=== PATIENT | male | born 1980 ===

== ENCOUNTER 2025-05-10 14:39 | Outpatient (AMB) | payer BC, SELFPAY ==
--- NOTE | 2025-05-10 14:46 | A.OFFVIS_ITS ---
Vital Signs 05/10/25 14:48 Height 6 ft 1.5 in Weight 257 lb 0.944 oz BMI 33.5 BP 151/92 H Blood Pressure Location Lt brachial Position Sitting Pulse 79 Intake Visit Reasons: Colonoscopy screening Intake Note: New patient in office today for colonoscopy screening. CC: Patient denies having any GI symptoms concerns. De Icer Element Winder Required: No Accompanied by: Self / Same As Patient Allergies No Known Drug Allergies Allergy (Unknown, Verified 05/10/25 14:50) none HPI HPI Colonoscopy screening: Details: 44-year-old male here for preprocedural meeting to discuss a screening colonoscopy. He is referred by [facility] in [facility] 0. PMX Obesity-BMI 33 Hypertension History of epidural abscess Lumbar degenerative disc disease * SURGICAL HISTORY Lumbar laminectomy L1-L4 Rt rotator cuff repair * ALLERGIES: NKDA * Cherrish LABS: none TODAY'S VISIT This is his 1st colonoscopy. Bowel or upper GI problems: No Cardiac or respiratory problems: No Anesthesia or sedation problems: No Infectious disease problems: No Family history: His [facility] Medical History (Updated 05/10/25 @ 15:39 by ABDIRASHID Joseph) Epidural abscess Surgical History (Updated 05/10/25 @ 14:51 by BELL Hollins) H/O rotator cuff surgery History of lumbar laminectomy Social History (Updated 05/10/25 @ 14:52 by BELL Hollins) Alcohol intake: current Alcohol intake frequency: holidays/special occasions only Patient Tobacco Use Status: Never used Tobacco Review of Systems Const Denies fatigue, Denies fever(s), Denies night sweats, Denies poor appetite and Denies weight loss ENT Reports Normal hearing present, Denies dental pain, Denies dysphagia, Denies he aring loss, Denies mouth pain, Denies odynophagia, Denies throat swelling, Denies tongue swelling and Reports other (Dentition adequate) Card Reports no additional complaints Resp Reports no additional complaints GI Details: Denies abdominal pain, Denies melena, Denies bloating, Denies hematochezia, Denies constipation, Denies GI cramping, Denies dysphagia, Denies excessive flatus, Denies early satiety, Denies heartburn, Denies diarrhea, Denies nausea, Denies odynophagia, Denies vomiting and Denies hematemesis Skin/Breast Denies pruritus, Denies lesions, Denies rash and Denies jaundice Neuro Reports Normal hearing present and Denies Abnormal speech present Endo Denies fatigue Aller/Immun Denies throat swelling and Denies tongue swelling Physical Exam Vital Signs: Last Vital Signs Pulse 79 05/10/25 14:48 BP 151/92 H 05/10/25 14:48 BMI result Body Mass Index 33.5 Const General: cooperative, no acute distress, well developed and well groomed Nutritional Appearance: well nourished and obese Orientation/consciousness: oriented to person, oriented to place and oriented to time Limitations: No language barrier HEENT Head: Yes normocephalic and Yes atraumatic Eyes General: appearance normal, both eyes and all related structures Pupils: Equal, round and reactive pupils present Neck Neck: Yes normal visual inspection and Yes no lymphadenopathy Thyroid: Thyroid normal Resp Effort & Inspection: normal respiratory effort and able to speak in complete sentences Auscultation: clear to auscultation bilaterally Cardio Rate: regular rate Rhythm: regular rhythm Heart sounds: Normal, physiologic split S2 sound present Peripheral pulses: radial pulses present and posterior tibial pulses present GI Inspection: No distended, No Abdominal panniculus present and Yes obesity Palpation (GI): Soft to palpation, nontender, no guarding, not rigid and No hepatosplenomegaly present Percussion: Yes normal to percussion Auscultation: normal bowel sounds Rectal Exam - Male: Yes deferred Skin General skin exam: no rashes or lesions noted, turgor normal, skin not dry, no jaundice, No spider nevi and no striae Rashes: no rashes Nails: normal Neuro General: oriented to person, oriented to place and oriented to time Cranial nerves: Yes Equal, round and reactive pupils present and Yes Normal hearing present Speech: No Abnormal speech present Extrem General: Yes normal to inspection, No clubbing, No cyanosis and No edema Psych Appearance: grossly normal and well kempt Mental Status: mental status grossly normal Speech and movement: Normal speech and movement present Affect: normal affect Attitude: cooperative Thought process: Normal thought process present and not confabulating Thought content: Normal thought content present Insight: Good insight present (Psych) Judgement: Good judgement present (Psych) Assessment & Plan Assessment & Plan (1) Pre-op examination: Code(s): Z01.818 - Encounter for other preprocedural examination Category: Medical (2) Obesity (BMI 30.0-34.9): Code(s): E66.811 - Obesity, class 1 Category: Medical (3) Family history of polyps in the colon: Comment: father Code(s): Z83.719 - Family history of colon polyps, unspecified Category: Medical Plan This is his 1st colonoscopy. Bowel or upper GI problems: No Cardiac or respiratory problems: No Anesthesia or sedation problems: No Infectious disease problems: No Family history: His father had colon polyps Orders: Orders Comprehensive Met. Panel Today Z01.818 - Encounter for other preprocedural examination Complete Blood Count Auto Diff Today Z01.818 - Encounter for other preprocedural examination Referrals 2 GI Procedure Notification Z01.818 - Encounter for other preprocedural examination Medications: New peg 3350-electrolytes 236-22.74-6.74 -5.86 gram (Golytely) until fecal effluent is clear; do not exceed a total volume of 2,000 mL 240 mL PO Q10M 4,000 mL 0RF 1 day Z12.11 - Encounter for screening for malignant neoplasm of colon bisacodyl (Dulcolax (bisacodyl)) 10 mg (2 x 5 mg) PO BEDTIME 4 tabs 0RF 2 days Coding Level of Care Code New Pt Level 3 (51507) Diagnoses Pre-op examination Z01.818 Obesity (BMI 30.0-34.9) E66.811 Family history of polyps in the colon Z83.719
[2025-05-10 14:48] VITALS: BP 151/92; PULSE 79; BMI 33.5
== END 2025-05-10 15:38 | disposition home or self-care (01) ==
LOC: HO.HGI 14:39
PROVIDERS: PCP Internal Medicine; Visit Provider Nurse Practitioner
DX: Z01.818 Encounter for other preprocedural examination (principal); Z12.11 Encounter for screening for malignant neoplasm of colon; Z83.719 Family history of colon polyps, unspecified; E66.811 Obesity, class 1; Z68.33 Body mass index [BMI] 33.0-33.9, adult
CPT/HCPCS: S0285

== ENCOUNTER 2025-08-02 07:47 | Day surgery (SDC) | payer BC, SELFPAY ==
--- OUTSIDE RECORDS SUMMARY | 2024-03-17 09:30 | XMS_ITS ---
Author Organization [facility] Address [address] [facility] [address] [place] [address] Care Team Providers Care Copper Plate Printer Name Role Phone SUSY LYNN Primary Care Provider Ino Garcia Unavailable [phone] REASON FOR VISIT f/u Encounters Encounter Location Date Provider Diagnosis [facility] [address] [facility] [address] [place] [address] 03/17/2024 Ino Garcia Plan Of Treatment Next Appt Details Provider Name:SUSY LYNN , 10/03/2025 01:00:00 PM, [address] [facility] [address], [place], [address], Progress Notes * Elia MC RDOB:1980 (45 yo M)Acc No.[id number]:03/17/2024 Progress Notes Patient: Murali DL Elia David Appointment Provider: Lee Garcia :1980 A ge:43 Y S ex:Male Date:03/17/2024 Phone: Address:[address] [place] [phone] Pcp:SUSY LYNN Subjective: * Chief Complaints: * 1 . F/u. * Medical History: Objective: * Vitals: Assessment: Plan: * Treatment: * Procedure Codes: N OSHO NO SHOW FEE * Images: * Electronic signature of Pedrito Garcia PA-C on 07/26/2025 at 03:58 PM EST Sign off status: Pending * Appointment Provider: Lee Garcia Date: 0 03/17/2024 Generated for Kat chen/Jose/Bunny on: 1 09/26/2024 03:58 PM EST
--- OUTSIDE RECORDS SUMMARY | 2025-03-21 06:15 | XMS_ITS ---
Author Organization [facility] Address [address] [place] [phone] Care Team Providers Care Time Recorder Name Role Phone SUSY LYNN Primary Care Provider REASON FOR VISIT 4 month f/u-BP Encounters Encounter Location Date Provider Diagnosis [facility] [address] [address] 03/21/2025 SUSY LYNN Plan Of Treatment Next Appt Details Provider Name:SUSY LYNN , 10/03/2025 01:00:00 PM, [address] [place] [address], [place], [address], Progress Notes * Elia MC RDOB:1980 (45 yo M)Acc No.[id number]:03/21/2025 Progress Notes Patient: Murali Eila LIZAMA Provider: Lisa LYNN MD :1980 A ge:44 Y S ex:Male Date:03/21/2025 Phone: Address:[address] [place] [phone] Subjective: * Chief Complaints: * 1 . 4 month f/u-BP. * Medical History: Objective: * Vitals: Assessment: Plan: * Treatment: * Procedure Codes: N OSHO NO SHOW FEE * Images: * Electronic signature of JOHN LYNN MD on 07/26/2025 at 03:57 PM EST Sign off status: Pending * Provider: Lisa LYNN MD Date: 0 03/21/2025 Generated for Kat chen/Jose/Bunny on: 1 09/26/2024 03:57 PM EST
--- OUTSIDE RECORDS SUMMARY | 2025-07-26 15:58 | XMS_ITS | Clinical Summary ---
Author Organization [facility] Address [address] [place] [address] Care Team Providers Care Safety Equipment Testing Specialist Name Role Phone Unavailable Primary Care Provider Unavailabl e Allergies No known active allergies Medications * This document contains information received from the source organization and may not represent a complete record from that organization. No known medications Active Problems No known active problems Social History Tobacco Use Types Packs/Day Years Used Date Smoking Tobacco: Former Cigarettes Comments:quit in 2007 Alcohol Use Standard Drinks/Week Comments Not Asked 0 (1 standard drink = 0.6 oz pur e alcohol) Sex and Gender Information Value Date Recorded Sex Assigned at Not on file Legal Sex Male 1:59 AM EDT Gender Identity Not on file Sexual Orientation Not on file Last Filed Vital Signs Vital Sign Reading Time Taken Comments Blood Pressure 130/70 07/22/2012 12:58 PM EST Pulse 84 07/22/2012 12:58 PM EST Temperature - - Respiratory Rate - - Oxygen Saturation 98% 07/22/2012 12:58 PM EST Inhaled Oxygen Concentration - - Weight 122 kg (270 lb) 07/22/2012 12:58 PM EST Height 184.4 cm (6' 0.6 ) 07/22/2012 12:58 PM ES T Body Mass Index 36.02 07/22/2012 12:58 PM EST Plan of Treatment Health Maintenance Due Date Last Done Comments Hepatitis C Screening 1980 DTaP/Tdap/Td (1 - Tdap) 1997 Hep B (1 of 3 - 19+ 3-dose series) 1998 COVID-19 Vaccine ( - 2024-2 6 season) 2025 Influenza (#1) 2025 Zoster (Shingrix) (1 of 2) 2029 HPV Vaccine (No Doses Required) Completed Hep A Aged Out No longer eligi ble based on patient's age to complete this topic Hib Aged Out No longer eligi ble based on patient's age to complete this topic Meningococcal ACWY Aged Out No longer eligible based on patient's age to complete this topic Pneumococcal Aged Out No longer eligi ble based on patient's age to complete this topic
--- NOTE | 2025-07-30 14:57 | P.CONAN_ITS ---
Documented by User: Bella Harris NP 07/30/25 14:58 HPI - Anesthesia Eval Consult details Narrative: 45yo M for Colonoscopy [facility] Active Problems Active Problems: All Active Problems Family history of polyps in the colon (Acute) Pre-op examination (Acute) Lumbar degenerative disc disease (Acute) Hypertension (Acute) Obesity (BMI 30.0-34.9) (Acute) Past Medical History Medical History HTN (hypertension) Epidural abscess Surgical History Surgical History H/O rotator cuff surgery History of lumbar laminectomy Social History Social History Alcohol intake: current Alcohol intake frequency: holidays/special occasions only Patient Tobacco Use Status: Former Tobacco user Have you been hit, kicked, punched, or otherwise hurt by someone within the past year? If so, by whom?: No Are you DNR?: No Advance Directives: No Advance Directives Information Provided: Yes Meds Allergies Allergy/AdvReac Type Severity Reaction Status Date / Time No Known Drug Allergies Allergy Unknown none Verified 05/10/25 14:50 Assessment and Plan Assessment Anesthesia Assessment: Chart Reviewed Documented by User: Stephie Ponce MD 08/02/25 09:08 [facility] Past Medical History Medical History HTN (hypertension) Epidural abscess Family History Family history of problems with anesthesia: No Surgical History Surgical History H/O rotator cuff surgery History of lumbar laminectomy History of Problems with Anesthesia: No Social History Social History Alcohol intake: current Alcohol intake frequency: holidays/special occasions only Patient Tobacco Use Status: Former Tobacco user Have you been hit, kicked, punched, or otherwise hurt by someone within the past year? If so, by whom?: No Are you DNR?: No Advance Directives: No Advance Directives Information Provided: Yes Meds Allergies Allergy/AdvReac Type Severity Reaction Status Date / Time No Known Drug Allergies Allergy Unknown none Verified 05/10/25 14:50 Exam Airway Mallampati Class: II TM Dist: >3cm Neck ROM: Full Heart: rrr Lungs: cta Assessment and Plan Assessment Anesthesia Assessment: Anesthesia Plan Discussed Final Anesthetic Review Family History of Problems with Anesthesia: No History of Problems with Anesthesia: No NPO: Yes ASA Class: II Final Preanesthetic Review: No Changes in Pt Med Stat, Meds/Allgs Chart Reviewed, Consent Obtained/Reviewed and Anes Risks/Benef Reviewed Patient Risk: Low Procedure Risk: Low Anesthetic Plan Anesthetic Plan: MAC: and Agree w/ Assess. and Plan Disposition: Standard PACU
[2025-07-31 11:01] VITALS: BMI 33.4
[2025-08-02 08:05] VITALS: BP 150/103; PULSE 66; RESP 18; TEMP 36.9; O2SAT 98; BMI 31.9
[2025-08-02 08:18] VITALS: BP 151/90
[2025-08-02] MEDS: Lactated Ringers 1,000 ML 100 ML IVCONT (08:23)
--- NOTE | 2025-08-02 09:04 | MHC.SHP ---
Pre-Procedural Eval Section A - 24 Hr Update-Section A only Date of Service: 08/02/25 Section B - Complete if H&P > 30 days Chief Complaint: Screening Details of Present Illness: Obesity-BMI 33 Hypertension History of epidural abscess Lumbar degenerative disc disease * SURGICAL HISTORY Lumbar laminectomy L1-L4 Rt rotator cuff repair Present Medications: see Short Stay Collaborative assessment Allergies: Allergies Allergy/AdvReac Type Severity Reaction Status Date / Time No Known Drug Allergies Allergy Unknown none Verified 05/10/25 14:50 Review of Systems Review of Systems Comment: Ten point ROS negative Exam Exam Comment: Gen appear: No acute distress HEENT: no icterus Chest: No overt resp distress Abd: soft, nontender, nondistended Psych: Stable affect, answering questions appropriately Neuro: A/Ox3 noted to move all extremities spontaneously Ext: no peripheral edema Plan Diagnosis/Plan: Unchanged I have reviewed the history and physical and performed a pertinent physical examination on my patient. No changes have occurred unless specified. Time Spent With Patient Time: Total time managing care of this patient today ____ minutes.
--- NOTE | 2025-08-02 09:40 | PC.NURSE ---
pt received 1 liter fluids in preop
--- NOTE | 2025-08-02 09:50 | P.OP_ITS ---
Operative Note Operative Note Date of Service: 08/02/25 Narrative: Procedure: Colonoscopy Indication: Screening Endoscopist: Angelique Vee MD Anesthesia Provider: Lynne Cross CRNA Anesthesia type: MAC Instrument: Olympus [id number]-[id number] Consent: Indication, risks vs benefits, and alternatives were discussed with the patient who gave written informed consent to proceed. EKG, pulse, pulse oximetry and blood pressure were monitored throughout the procedure. Please see anesthesia flowsheet. Procedure: The patient was brought to the procedure room and placed in the left lateral decubitus position. IV medications were administered by the anesthesia provider in attendance. A digital rectal exam was performed which was normal. The colonoscope was then inserted through the anus and advanced through the colon to the cecum at 75 cm,and terminal ileum. Mucosa was carefully examined under high definition white light as the instrument was slowly withdrawn in a retrograde panoramic fashion. Retroflexion was performed in rectum. The procedure was not difficult. There were no immediate obvious complications. The quality of the prep was BBPS: 3+3+3 = adequate Withdrawal time 7 minutes. Limitations: No limitations. Findings: Mucosa: Normal to cecum and terminal ileum. Protruding lesions: * Medium internal hemorrhoids without stigmata of recent bleeding. Impression: 1. Normal colon and terminal ileum mucosa 2. Internal hemorrhoids Recommendations: - repeat colonoscopy for asymptomatic colorectal cancer screening in 10 years
[2025-08-02 10:36] VITALS: BP 117/62; PULSE 62; RESP 12; TEMP 36.6; O2SAT 97
[2025-08-02 10:45] VITALS: BP 126/75; PULSE 54; RESP 12; O2SAT 97
[2025-08-02 11:00] VITALS: BP 135/93; PULSE 60; RESP 14; O2SAT 97
[2025-08-02 11:09] VITALS: BP 146/91; PULSE 60; RESP 16; TEMP 36.2; O2SAT 96
== END 2025-08-02 11:30 | disposition home or self-care (01) ==
PROVIDERS: PCP Hospitalist; Visit Provider Internal Medicine
PROC: 0DJD8ZZ Inspection of Lower Intestinal Tract, Via Natural or Artificial Opening Endoscopic (ICD-10-PCS; CPT 45378; principal; 2025-08-02 09:20)
DX: Z12.11 Encounter for screening for malignant neoplasm of colon (principal); Z83.719 Family history of colon polyps, unspecified; K64.8 Other hemorrhoids
CPT/HCPCS: 45378; J2704

== ENCOUNTER → 2025-08-02 07:47 | Outpatient (BNV) | payer BC, SELFPAY | PROVIDERS: PCP Hospitalist; Visit Provider Internal Medicine | DX: Z12.11 Encounter for screening for malignant neoplasm of colon (principal); K64.8 Other hemorrhoids | CPT/HCPCS: 45378 ==